=== PATIENT | female | born 1980 | race Hispanic/Latino ===

== ENCOUNTER 2024-12-18 14:53 | Emergency (ER) | payer OTHER ==
[~2024-12-18] VITALS: Ht 152.4 cm; Wt 52.2 kg
[~2024-12-18 14:53] MED LIST: IBUP-1492 PO; ONDA-243 PO
--- NOTE | 2024-12-18 15:05 | ERN ---
ED Note History of Present Illness Stated Complaint: HEADACHE Chief Complaint: Headache Time Seen by MD: 15:00 Dictation: PATIENT IS A 44-YEAR-OLD FEMALE COMING IN TODAY WITH COMPLAINTS OF A FRONTAL SINUS HEADACHE TENDERNESS SHE HAS HAD FOR TWO DAYS. NO FEVER NO CHILLS NO NAUSEA VOMITING. NIH IS NEGATIVE. HE STATES HE HAS HAD SIMILAR HEADACHE IN THE PAST AND FIVE YEARS GOES REFERRED TO A NEUROLOGIST BY HER DOCTOR BUT CANCEL THE APPOINTMENT DUE TO PINKEYE. SHE STATES SHE DID NOT MAKE A REPEAT APPOINTMENT BECAUSE THEY TOOK TOO LONG. SHE HAS NOT BEEN TO SEE HER PRIMARY CARE DOCTOR. NO FEVER NO CHILLS. NIH IS 0 ON APPROACH Allergies: Coded Allergies: No Known Allergies (Unverified Allergy, Unknown, 12/23/21) Home Meds Active Scripts Ondansetron (Ondansetron Odt) 4 Mg Tab.rapdis, 4 MG PO Q6HPRN PRN for nausea, #16 TAB 0 Refills Prov:MIGUEL CHONG TOPPIECE CUTTER 12/18/24 Ibuprofen (Ibuprofen) 600 Mg Tablet, 600 MG PO Q6H PRN for PAIN, #30 TAB 0 Refills Prov:HEIKE CARRASQUILLO MD 12/23/21 Ondansetron (Ondansetron Odt) 4 Mg Tab.rapdis, 4 MG PO TID PRN for NAUSEA, #15 TAB 0 Refills Prov:HEIKE CARRASQUILLO MD 12/23/21 Past Medical History Past Medical History: Migraines, Other Additional Past Medical Hx: head to trauma when younger Surgical History: Other Surgical History Other: head sx History: Not Applicable RN Note Reviewed/Agreed w/PFSH: Yes Review of System Dictation CONSTITUTIONAL: NEGATIVE EXCEPT FOR HPI HEAD/FACE: NEGATIVE EXCEPT FOR HPI EENT: NEGATIVE EXCEPT FOR HPI RESPIRATORY: NEGATIVE EXCEPT FOR HPI GASTROINTESTINAL/ABDOMINAL: NEGATIVE EXCEPT FOR HPI NAUSEA VOMITING GENITOURINARY: NEGATIVE EXCEPT FOR HPI MUSCULOSKELETAL: NEGATIVE EXCEPT FOR HPI INTEGUMENTARY: NEGATIVE EXCEPT FOR HPI NEUROLOGICAL/PSYCH: NEGATIVE EXCEPT FOR HPI LEFT TEMPOROPARIETAL HEADACHE HEMATOLOGIC/LYMPHATIC: NEGATIVE EXCEPT FOR HPI ALL SYSTEMS NEGATIVE, EXCEPT NOTED ABOVE. 13 POINT REVIEW OF SYSTEMS ASSESSED AND ALL NEGATIVE EXCEPT FOR ABOVE. Initial Vital Sign VS Vital Signs Date Time Temp Pulse Resp B/P (MAP) Pulse Ox O2 Delivery O2 Flow Rate FiO2 12/18/24 14:57 97.9 49 16 118/68 95 Room Air 12/18/24 15:00 0 21 Physical Exam Dictation VITAL SIGNS REVIEWED GENERAL APPEARANCE: ALERT, ORIENTED X 3, MILD ACUTE DISTRESS, WELL DEVELOPED, NOURISHED. HEAD AND FACE: NON-TRAUMATIC. EYES: PERRL, PINK CONJUNCTIVAS, EYELID NO TRAUMA, ANTERIOR CHAMBER WITH ARCUS SENILIS. NO ARREDONDO OR RACCOON SIGN EARS: PINNAS INTACT AND NO SIGNS OF TRAUMA OR ERYTHEMA EAR CANALS CLEAR AND NO DISCHARGE TM NO ERYTHEMA NO HEMOTYMPANUM NOSE: NO DISCHARGE, NO BLEEDING. OROPHARYNX: MOUTH NORMAL, TONGUE PINK, PHARYNX CLEAR,NO ERYTHEMA, TONSILS NO EXUDATES, NO ABSCESSES NOTED, MUCOUS MEMBRANE MOIST NECK: SUPPLE, NON-TENDER, NO THYROMEGALY, NO MASSES, NO JVD, NO BRUITS BREAST:DEFERRED CHEST:NO TENDERNESS, NO CREPITUS, NO PARADOXICAL MOVEMENT, NO RETRACTIONS LUNGS:CLEAR, WELL-VENTILATED, SYMMETRIC, NO RALES, NO WHEEZING, NO RHONCHI, NO STRIDOR, GOOD BREATH SOUNDS BILATERALLY HEART: REGULAR RATE, REGULAR RHYTHM, NO MURMUR, NO GALLOPS VASCULAR: NO PERIPHERAL EDEMA, ABDOMEN: SOFT, POSITIVE BOWEL SOUNDS, NONDISTENDED, NO GUARDING, NONTENDER, NO REBOUND, NO MASSES NO HEPATOMEGALY, NO SPLENOMEGALY, NO VALLE'S SIGN, NO HERNIAS. RECTAL: DEFERRED GENITAL: DEFERRED NEUROLOGICAL: NORMAL SPEECH, MOTOR FUNCTION INTACT, SENSORY FUNCTION INTACT NIH IS 0 MUSCULOSKELETAL: NECK NONTENDER, FULL RANGE OF MOTION, BACK NONTENDER, FULL RANGE OF MOTION, EXTREMITIES: NONTENDER, FULL RANGE OF MOTION SKIN: COLOR PINK, DRY, NO TURGOR, NO RASH, NO LACERATIONS, NO ABRASIONS, NO CONTUSIONS. LYMPHATIC: DEFERRED OVE. Results (Laboratory/Radiology) Laboratory/Radiology Laboratory Tests Test 12/18/24 15:18 White Blood Count 7.8 K/uL (4.8-10.8) Red Blood Count 4.30 MIL/uL (4.00-5.50) Hemoglobin 13.0 g/dL (12.0-16.0) Hematocrit 39.4 % (36-48) Mean Corpuscular Volume 91.6 fL (79-99) Mean Corpuscular Hemoglobin 30.2 pg (27.0-33.0) Mean Corpuscular Hemoglobin Concent 33.0 g/dL (32.0-36.0) Red Cell Distribution Width 13.2 % (11.0-15.5) Platelet Count 405 K/uL (130-400) H Mean Platelet Volume 9.3 fL (7.5-10.5) Immature Granulocyte % (Auto) 0.6 % (0-1) Neutrophils (%) (Auto) 83.1 % (40.0-77.0) H Lymphocytes (%) (Auto) 8.1 % (21.0-51.0) L Monocytes (%) (Auto) 5.4 % (3.0-13.0) Eosinophils (%) (Auto) 2.4 % (0.0-8.0) Basophils (%) (Auto) 0.4 % (0.0-5.0) Neutrophils # (Auto) 6.5 K/uL (1.8-7.7) Lymphocytes # (Auto) 0.6 K/uL (1.0-4.8) L Monocytes # (Auto) 0.4 K/uL (0.1-1.0) Eosinophils # (Auto) 0.19 K/uL (0.00-0.70) Basophils # (Auto) 0.03 K/uL (0.00-0.20) Absolute Immature Granulocyte (auto 0.05 K/uL (0-1) Nucleated Red Blood Cells 0.0 % (0.0-0.19) White Cell Morphology Comment See comments Sodium Level 140 mmol/L (136-145) Potassium Level 4.6 mmol/L (3.5-5.1) Chloride Level 104 mmol/L (101-111) Carbon Dioxide Level 27 mmol/L (21-32) Blood Urea Nitrogen 7 mg/dL (7-18) Creatinine 0.6 mg/dL (0.5-1.0) Glomerular Filtration Rate Calc 114 mL/min (>90) Random Glucose 96 mg/dL (70-105) Total Calcium 8.9 mg/dL (8.5-10.1) EXAM: CT Head Without IV contrast. CLINICAL HISTORY: TWO WEEKS AGO WITH LEFT TEMPOROPARIETAL HEADACHE WITH NAUSEA VOMITING TECHNIQUE: Axial computed tomography images of the head/brain without intravenous contrast. COMPARISON: None provided. FINDINGS: BRAIN: No acute bleed or infarct. 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 VENTRICLES: No hydrocephalus. ORBITS: The orbits are unremarkable. SINUSES AND MASTOIDS: The paranasal sinuses and mastoid air cells are clear. BONES: No fracture. SOFT TISSUES: Unremarkable. IMPRESSION: 1. No acute bleed or infarct. 2. 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 /[place] Labs Reviewed?: Yes ED Course ED Course Orders Procedure Category Date Status Time Acetaminophen 500mg PHA 12/18/24 Complete Tab (Tylenol 500mg T 15:30 Cbc With Differential LAB 12/18/24 Complete 15:03 Basic Metabolic Panel LAB 12/18/24 Complete 15:03 Ondansetron Odt 4mg PHA 12/18/24 Complete Tab (Zofran 4mg Odt) 16:30 Ct Head/Brain W/O CT 12/18/24 Resulted Contrast 17:16 Current Medications Medications (Trade) Dose Ordered Sig/Juanjo Route PRN Reason Start Time Stop Time Status Last Admin Dose Admin Acetaminophen (TYLenol 500MG TAB) 1,000 mg ONCE ONCE PO 12/18/24 15:30 12/18/24 15:31 DC 12/18/24 16:35 Ondansetron HCl (zoFRAN 4MG ODT) 4 mg ONCE ONCE SL 12/18/24 16:30 12/18/24 16:31 DC 12/18/24 16:34 Vital Signs Date Time Temp Pulse Resp B/P (MAP) Pulse Ox O2 Delivery O2 Flow Rate FiO2 12/18/24 17:27 98.2 52 16 118/65 96 Room Air* 0 21 12/18/24 16:15 98.2 0 16 120/65 96 Room Air* 0 21 12/18/24 15:00 97.9 49 16 118/68 95 Room Air* 0 21 12/18/24 14:57 97.9 49 16 118/68 95 Room Air 1716/PATIENT IN TEARS AND IN HIS NOW TELLING ME THAT SHE HAD A SLIP FALL IN HER BATHTUB TWO WEEKS AGO AND HIT THE LEFT TEMPOROPARIETAL SCALP. SHE SAID SHE HAS HAD MULTIPLE BOUTS OF NAUSEA VOMITING SINCE THE INCIDENT HOWEVER HAS KEPT WORKING AND WORKS AT HOME. SHE STATES SHE DID NOT REMIND ME OR GO TO HER DOCTOR BECAUSE SHE HAS BEEN HAVING MEMORY LOSS HIS SINCE THE INCIDENT. FOLLOWING [place] CAT SCAN RULE GUIDELINES I WE WILL SCAN PATIENT'S HEAD SINCE SHE HAS HAD MORE THAN TWO BOUTS OF NAUSEA VOMITING WITH SOME MEMORY LOSS. PATIENT REMAINS NEUROLOGICALLY INTACT, GAIT IS STEADY TO [id number]/ 1812/PATIENT DISCHARGED HOME IN HIS NEUROLOGICALLY INTACT. SHE IS AWARE THAT CAT SCAN SHOWS OLD RIGHT-SIDED ENCEPHALOMALACIA NO ACUTE INJURY. SHE WILL BE DISCHARGED HOME WITH POSTCONCUSSION SYNDROME DUE TO HER FALL IN THE BATHTUB TWO WEEKS AGO TOLD NO WORK UNTIL CLEARED BY HER PRIMARY CARE DOCTOR. TOMASA WILLIAMSONRADAR REPAIRER NURSE AT BEDSIDE WHEN I EXPLAINED CLINICAL FINDINGS TO PATIENT AND HER AUNT WHO WAS WITH HER. ALL QUESTIONS WERE ANSWERED. HER AND TOLD HER THAT SHE WOULD TAKE HER TO HER PRIMARY CARE DOCTOR TOMORROW FOR REFERRAL FOR NEUROLOGY. Medical Decision Making MDM MDM: DIFFERENTIAL DIAGNOSIS: CONCUSSION/SKULL FRACTURE/POSTTRAUMATIC HEADACHE/NAUSEA VOMITING/ELECTROLYTE IMBALANCE/DEHYDRATION RATIONALE: TESTS CONSIDERED AND ORDERED SECONDARY TO SHARED DECISION MAKING INCLUDE: CT/LABS PREVIOUS OUTSIDE RECORDS REVIEWED: OLD ER VISITS. RISK OF COMPLICATION AND/OR MORBIDITY OR MORTALITY OF PATIENT MANAGEMENT: NONE MEDICATIONS-PER MEDICATION RECONCILIATION NEED FOR HOSPITALIZATION: PATIENT DOES NOT MEET CRITERIA FOR HOSPITALIZATION. NO NEED FOR EMERGENCY MAJOR/MINOR SURGERY: NO THERE ARE NO SOCIAL CONCERNS WITH THIS PATIENT. PRESCRIPTION DRUG MANAGEMENT ZOFRAN, [id number] TYLENOL FOR PAIN UNTIL CLEARED BY HER DOCTOR PRESCRIPTIONS WILL INCLUDE SYMPTOMATIC CARE PATIENT'S PRIOR EXTERNAL MEDICAL RECORDS FROM OTHER ER VISITS WERE REVIEWED BY ME INDICATED. PRIOR TESTING AND RESULTS FROM PREVIOUS VISITS WERE REVIEWED. PRIOR TESTS WERE TAKEN INTO ACCOUNT WITH MEDICAL DECISION MAKING AND RESOURCE UTILIZATION, INDEPENDENT HISTORIAN/HISTORIANS WERE USED TO OBTAIN COMPLETE MEDICAL HISTORY. I INDEPENDENTLY INTERPRETED THE TEST THAT WERE PERFORMED, RESULTS WERE REVIEWED BY ME AND CONSIDERED FINDINGS ON RADIOLOGY IF ORDERED. MEDICAL MANAGEMENT AND EXAMINATION INTERPRETATION DISCUSSIONS WERE HAD BY ME WITH OTHER QUALIFIED HEALTHCARE PROFESSIONALS INDICATED FOR THE PATIENT'S CARE. DX & DISP Disposition: Discharge Departure Impression: Primary Impression: Postconcussion syndrome Additional Impressions: Nausea & vomiting, Encephalomalacia Condition: Stable Scripts Ondansetron (Ondansetron Odt) 4 Mg Tab.rapdis 4 MG PO Q6HPRN PRN for nausea, #16 TAB 0 Refills Prov: MIGUEL CHONG TOPPIECE CUTTER 12/18/24 Additional Instructions: FOLLOW-UP WITH PRIMARY CARE PROVIDER IN 1 TO 2 DAYS. TAKE MEDICATIONS DIRECTED HERE IN THE EMERGENCY ROOM. OKAY TO CONTINUE HOME MEDICATIONS UNLESS OTHERWISE DISCUSSED DURING YOUR VISIT IN THE EMERGENCY ROOM TODAY. RETURN TO YOUR NEAREST EMERGENCY ROOM IF SYMPTOMS WORSEN OR IF THERE IS NO IMPROVEMENT. CALL 911 IF YOU NEED IMMEDIATE ASSISTANCE. TAKE TYLENOL [id number] NEEDED AND IF NO CONTRAINDICATIONS ARE PRESENT. INCREASE ORAL HYDRATION. A WOUND CULTURE OR URINE CULTURE WAS ORDERED HERE IN THE EMERGENCY ROOM DEPARTMENT PLEASE FOLLOW-UP WITH PRIMARY CARE PROVIDER AND ADVISE THEM TO GET REPEAT PORTS FROM OUR FACILITY. IF YOU HAD ANY MARLEE WRAP/SPLINTS THAT WERE APPLIED HERE, PLEASE DO NOT REMOVE THEM UNTIL YOU SEE YOUR PRIMARY CARE OR SPECIALTY. NO WORK UNTIL CLEARED BACK BY YOUR PRIMARY CARE DOCTOR. TYLENOL [id number] NEEDED FOR HEADACHE. TAKE ZOFRAN NEEDED FOR NAUSEA VOMITING. Referrals: DONNA RUTH MD (PCP) Time of Disposition: 18:14 I have reviewed the case, and I agree with, Diagnosis and Plan MIGUEL CHONG NP Dec 18, 2024 15:05
[2024-12-18 16:21] LABS: IMMATURE GRANULOCYTE ABSOLUTE 0.05 K/uL (0-1); NUCLEATED RED BLOOD CELLS 0.0 % (0.0-0.19); PLATELET COUNT (AUTO) 405 K/uL (130-400); RED BLOOD CELL COUNT(AUTO) 4.30 MIL/uL (4.00-5.50); RED CELL DISTRIBUTION WIDTH 13.2 % (11.0-15.5); WHITE BLOOD COUNT (AUTO) 7.8 K/uL (4.8-10.8)
[2024-12-18 17:06] LABS: CREATININE 0.6 mg/dL (0.5-1.0); GLOMERULAR FILTR. RATE CALC 114.0 mL/min (>90); GLUCOSE,RANDOM 96.0 mg/dL (70-105); SODIUM SERUM 140.0 mmol/L (136-145); UREA NITROGEN, BLOOD 7.0 mg/dL (7-18)
[2024-12-18 17:27] VITALS: BP 118/65; PULSE 52; RESP 16; TEMP 98.3; O2SAT 96
--- NOTE | 2024-12-18 18:04 | HMCIMG ---
EXAM: CT Head Without IV contrast. CLINICAL HISTORY: TWO WEEKS AGO WITH LEFT TEMPOROPARIETAL HEADACHE WITH NAUSEA VOMITING TECHNIQUE: Axial computed tomography images of the head/brain without intravenous contrast. COMPARISON: None provided. FINDINGS: BRAIN: No acute bleed or infarct. 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 VENTRICLES: No hydrocephalus. ORBITS: The orbits are unremarkable. SINUSES AND MASTOIDS: The paranasal sinuses and mastoid air cells are clear. BONES: No fracture. SOFT TISSUES: Unremarkable. IMPRESSION: 1. No acute bleed or infarct. 2. 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 /[place]
[2024-12-18] MEDS ORDERED: ONDA-243 PO (18:16)
== END 2024-12-18 18:39 | disposition home or self-care (01) ==
LOC: EDH 14:53
DX: R11.2 Nausea with vomiting, unspecified (principal); G93.89 Other specified disorders of brain; F07.81 Postconcussional syndrome; Z79.899 Other long term (current) drug therapy
CPT/HCPCS: 36415; 70450; 80048; 85025; 99284